=== PATIENT | male | born 1970 | race Caucasian/White ===

== ENCOUNTER 2018-08-03 22:28 | Emergency (ER) | payer OTHER ==
[~2018-08-03] VITALS: Ht 182.8 cm; Wt 113.4 kg
[2018-08-03] MEDS ORDERED: VIBRAMYCIN100 MG PO (22:43)
== END 2018-08-03 23:10 | disposition home or self-care (01) ==
LOC: ED 22:28
DX: S30.861A Insect bite (nonvenomous) of abdominal wall, initial encounter (principal); W57.XXXA Bitten or stung by nonvenomous insect and other nonvenomous arthropods, initial encounter; Y93.89 Activity, other specified; Y92.89 Other specified places as the place of occurrence of the external cause; Y99.8 Other external cause status

== ENCOUNTER → 2022-01-08 | Outpatient (CLI) | payer SELFPAY ==
[~2022-01-08] MED LIST: ASPIRIN ADULT L81 M2 PO; ATORVASTATIN CA40 M1 PO; HYDR25T PO; LISINOPRIL20 MG PO; METFORMIN HYDR500 MG PO; VIBRAMYCIN100 MG PO; VITAMIN D350 MC2 PO
== END | disposition home or self-care (01) ==
LOC: RESCLI 02:39
PROVIDERS: ATTEND Student in an Organized Health Care Education/Training Program
DX: I10 Essential (primary) hypertension (principal); E78.5 Hyperlipidemia, unspecified; R06.02 Shortness of breath; Z79.82 Long term (current) use of aspirin; Z79.84 Long term (current) use of oral hypoglycemic drugs; Z79.899 Other long term (current) drug therapy

== ENCOUNTER → 2022-05-22 | Outpatient (CLI) | payer BC ==
[2022-05-22 10:10] LABS: ALKALINE PHOSPHATASE 48 U/L (46-116); BUN 15 mg/dl (9-23); CHLORIDE 94 mmol/L (98-107); CHOLESTEROL 153 mg/dL (<200); LDL CHOLESTEROL 73 mg/dL (9-159); POTASSIUM 3.9 mmol/L (3.4-5.1); SGPT/ALT 35 U/L (10-49); TRIGLYCERIDES 243 mg/dl (<150)
== END | disposition home or self-care (01) ==
LOC: LAB 08:55
PROVIDERS: ATTEND Family Medicine
DX: Z00.00 Encounter for general adult medical examination without abnormal findings (principal); E11.69 Type 2 diabetes mellitus with other specified complication; E66.9 Obesity, unspecified

== ENCOUNTER → 2024-04-15 | Outpatient (CLI) | payer BC ==
[2024-04-15 08:56] LABS: HEMATOCRIT 40.1 % (42.0-52.0); MEAN CELL VOLUME 84.1 fl (80.0-94.0); MEAN CORPUSCULAR HGB 29.1 pg (27.0-31.0); MEAN CORPUSCULAR HGB CONC 34.7 g/dl (33.0-37.0); RED BLOOD COUNT 4.77 10*6/uL (4.50-5.90); WHITE BLOOD COUNT 8.1 10*3/uL (4.8-10.8)
[2024-04-15 09:21] LABS: POTASSIUM 3.4 mmol/L (3.4-5.1); TOTAL PROTEIN 7.2 gm/dL (6.0-8.0)
== END | disposition home or self-care (01) ==
LOC: LAB 08:14
PROVIDERS: ATTEND Nurse Practitioner Family
DX: Z13.29 Encounter for screening for other suspected endocrine disorder (principal); Z11.59 Encounter for screening for other viral diseases; E11.69 Type 2 diabetes mellitus with other specified complication; E66.9 Obesity, unspecified; E55.9 Vitamin D deficiency, unspecified